=== PATIENT | male | born 1960 | race Caucasian/White ===

== ENCOUNTER 2021-01-25 00:15 | Emergency (ER) | payer MEDICAID ==
[2021-01-25] MEDS: hydrALAZINE 20 MG/ML SDV IVPUSH ONE (00:15)
[2021-01-25] MEDS: Acetaminophen/HYDROcodone 325-5 MG Tab PO ONE (00:15)
[2021-01-25] MEDS: Ondansetron 4 MG Tab.DIS PO ONE (00:26)
[2021-01-25] MEDS: Sodium Chloride 0.9% 10 ML Syringe FLUSH PRN (00:56)
--- NOTE | 2021-01-25 00:58 | EDM.PDOC ---
ED HPI GENERAL MEDICAL PROBLEM - General Chief Complaint: General Stated Complaint: TOOTH PAIN Time Seen by Provider: 01/25/21 00:15 Source of Information: Reports: Patient History Limitations: Reports: No Limitations - History of Present Illness INITIAL COMMENTS - FREE TEXT/NARRATIVE: Mr. Zhang is a 60 YOM here for Rt tooth and jaw pain. He has taken Ibuprofen at home for the pain with some relief. He has not been to a dentist in 5 years. Medical History of hypercholesterolemia. Teeth show decay and extensive dental work with fillings. His BP is elevated. Some sinus pressure and pain. He is vomiting, with nausea. No abd pain or D. No chest pain, cough or congestion. No fever. Normal HRR. Lungs CTA. 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 HEENT: Reports: Dental Pain, Ear Pain, Sinus Problem ED EXAM, GENERAL - Physical Exam Exam: See Below Exam Limited By: No Limitations General Appearance: Alert, Anxious, Moderate Distress Eye Exam: Bilateral Eye: PERRL Nose: Normal Inspection, Normal Mucosa Throat/Mouth: Normal Inspection, Normal Lips, Other (Dental caries) Neck: Normal Inspection, Supple, Non-Tender, Full Range of Motion Respiratory/Chest: No Respiratory Distress, Lungs Clear, Normal Breath Sounds Cardiovascular: Normal Peripheral Pulses, Regular Rate, Rhythm, Other (Hypertensive) GI/Abdominal: Normal Bowel Sounds, Soft, Non-Tender Extremities: Normal Inspection, Normal Range of Motion Neurological: Alert, Oriented, CN II-XII Intact Psychiatric: Normal Affect, Normal Mood, Anxious Skin Exam: Warm, Dry, Intact, Normal Color Lymphatic: No Adenopathy Course - Vital Signs Last Recorded V/S: Last Vital Signs Temp 36.9 C 01/25/21 00:20 Pulse 72 01/25/21 00:20 Resp 18 01/25/21 00:20 BP 177/103 H 01/25/21 00:20 Pulse Ox 96 01/25/21 00:20 - Orders/Labs/Meds Orders: Active Orders 24 hr Category Date Time Status EKG Documentation Completion [RC] ASDIRECTED Care 01/25/21 00:37 Active Max Facial Sinus wo Cont [CT] Stat Exams 01/25/21 00:32 Taken Labs: Laboratory Tests 01/25/21 01/25/21 Range/Units 00:30 00:31 WBC 6.8 (4.0-11.0) K/uL RBC 5.31 (4.50-6.50) M/uL Hgb 16.2 (13.0-18.0) g/dL Hct 47.0 (40.0-54.0) % MCV 89 (76-96) fL MCH 30.5 (27.0-32.0) pg MCHC 34.5 (31.0-35.0) g/dL RDW 13.7 (11.0-16.0) % Plt Count 167 (150-400) K/uL MPV 9.2 (6.0-10.0) fL Neut % (Auto) 77.4 H (45.0-70.0) % Lymph % (Auto) 15.6 L (20.0-40.0) % [place] % (Auto) 6.0 (3.0-10.0) % Eos % (Auto) 0.6 L (1.0-5.0) % Baso % (Auto) 0.4 (0.0-0.5) % Neut # (Auto) 5.26 (2.00-7.50) K/uL Lymph # (Auto) 1.06 L (1.50-4.00) K/uL [place] # (Auto) 0.41 (0.20-0.80) K/uL Eos # (Auto) 0.04 (0.04-0.40) K/uL Baso # (Auto) 0.03 (0.02-0.10) K/uL Sodium 141 (136-145) mmol/L Potassium 3.8 (3.5-5.1) mmol/L Chloride 104 (98-107) mmol/L Carbon Dioxide 27.5 (21.0-32.0) mmol/L Anion Gap 13.3 (5.0-15.0) mmol/L BUN 14 (8-26) mg/dL Creatinine 0.94 (0.70-1.30) mg/dL Est Cr Clr Drug Dosing TNP Estimated GFR (MDRD) > 60 (>60) MLS/MIN BUN/Creatinine Ratio 14.9 (6-25) Glucose 140 H (74-100) mg/dL Calcium 8.4 L (8.5-10.1) mg/dL Total Bilirubin 0.7 (0.0-1.0) mg/dL AST 23 (15-37) U/L ALT 39 (12-78) U/L Alkaline Phosphatase 52 (46-116) U/L Total Protein 7.7 (6.4-8.2) g/dL Albumin 4.2 (3.4-5.0) g/dL Globulin 3.5 (2.2-4.2) g/dL Albumin/Globulin Ratio 1.2 (0.8-2.0) Meds: Medications Discontinued Medications Generic Name Dose Route Start Last Admin Trade Name Freq PRN Reason Stop Dose Admin Hydrocodone Bitart/Acetaminophen Confirm 01/25/21 01:23 [place] 325-10 Mg Administered 01/25/21 01:24 Dose 1 tab .ROUTE .STK-MED ONE Hydralazine HCl Confirm 01/25/21 01:34 Apresoline Administered 01/25/21 01:35 Dose 20 mg .ROUTE .STK-MED ONE Labetalol HCl 20 mg 01/25/21 00:58 Normodyne IVPUSH 01/25/21 00:59 ONETIME ONE Protocol Ondansetron HCl 4 mg 01/25/21 00:23 01/25/21 00:26 Zofran Odt PO 01/25/21 00:24 4 mg ONETIME ONE Administration Oxycodone/Acetaminophen Confirm 01/25/21 01:53 Percocet 325-5 Mg Administered 01/25/21 01:54 Dose 3 tab .ROUTE .STK-MED ONE Pantoprazole Sodium 40 mg 01/25/21 00:59 Protonix Iv IVPUSH 01/25/21 01:00 ONETIME ONE Departure - Departure Time of Disposition: 02:00 Disposition: Home, Self-Care 01 Condition: Good Clinical Impression: Asymptomatic hypertensive urgency, Tooth abscess, Hypertension screening - Discharge Information *PRESCRIPTION DRUG MONITORING PROGRAM REVIEWED*: Not Applicable Instructions: Preventing Hypertension, Dental Abscess, [id number], Hypertension, Adult, [id number] Forms: ED Department Discharge Additional Instructions: Follow up with PCP and or Cardiology. See Dentist. Eat a soft diet, increase fluid intake. Return to ED for new or worsening symptoms. Sepsis Event Note (ED) - Focused Exam Vital Signs: Vital Signs Temp Pulse Resp BP Pulse Ox 01/25/21 00:20 36.9 C 72 18 177/103 H 96 - My Orders Last 24 Hours: My Active Orders 01/25/21 00:32 Max Facial Sinus wo Cont [CT] Stat 01/25/21 00:37 EKG Documentation Completion [RC] ASDIRECTED - Assessment/Plan Last 24 Hours: My Active Orders 01/25/21 00:32 Max Facial Sinus wo Cont [CT] Stat 01/25/21 00:37 EKG Documentation Completion [RC] ASDIRECTED Assessment:: Hypertensive urgency, molar tooth abscess
[2021-01-25] MEDS: Labetalol 100 MG/20 ML MDV IVPUSH ONE (01:05)
[2021-01-25] MEDS: Pantoprazole 40 MG Vial IVPUSH ONE (01:08)
[2021-01-25] MEDS ORDERED: Amoxicillin/Clavulanate K 875-125 MG Tab ONE (01:30)
[2021-01-25] MEDS ORDERED: Acetaminophen/oxyCODONE 325-5 MG Tab ONE (01:30)
[2021-01-25] MEDS: hydrALAZINE 20 MG/ML SDV ONE (01:53)
[2021-01-25] MEDS: Acetaminophen/oxyCODONE 325-5 MG Tab ONE (01:56)
[2021-01-25] MEDS: Acetaminophen/HYDROcodone 325-10 MG Tab ONE (02:10)
--- NOTE | 2021-01-25 14:59 | CT ---
CLINICAL DATA: Tooth abscess. UNENHANCED FACIAL CT, 25 JANUARY 2021: Multislice axial acquisition without IV contrast was performed. No priors. There is mild mucosal thickening in the ethmoid and left maxillary sinuses. No air-fluid levels. There is significant beam-hardening and streak artifact produced by the patient's metallic dental work. The adjacent structures are obscured. There is soft tissue swelling of the middle and inferior nasal turbinates. The globes are partially visualized. They appear grossly normal. No fractures. No lytic or blastic bone lesions. There are degenerative changes involving the atlantoaxial articulation. No other significant findings. Job: [id number] [facility]
== END 2021-01-25 02:00 | disposition home or self-care (01) ==
LOC: LB.ED 00:15
DX: K04.7 Periapical abscess without sinus (principal); I16.0 Hypertensive urgency; K02.9 Dental caries, unspecified; E78.00 Pure hypercholesterolemia, unspecified; Z79.899 Other long term (current) drug therapy
CPT/HCPCS: 36415; 70486; 80053; 85025; 93005; 96374; 96375; 99284; A9270; C9113; J0360; J3490; 99283